=== PATIENT | male | born 1995 | race African-American/Black ===

== ENCOUNTER 2016-12-07 09:43 | Emergency (ER) | payer BC ==
[2016-12-07 09:52] VITALS: RESP 16; TEMP 98.2
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
[2016-12-07 11:36] VITALS: BP 112/64; PULSE 64; O2SAT 98
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
== END 2016-12-07 11:20 | disposition home or self-care (01) ==
DX: S60.221A Contusion of right hand, initial encounter (principal); X58.XXXA Exposure to other specified factors, initial encounter